=== PATIENT | female | born 1980 | race Caucasian/White ===

== ENCOUNTER → 2025-03-23 | Outpatient (CLI) | payer BC ==
--- NOTE | 2025-03-23 11:55 | MM ---
Reason for Exam: Screening (asymptomatic). Last screening mammogram was performed 11 month(s) ago. Patient History: Menarche at age 15. First Full-Term at age 28. Premenopausal. Patient has history of breast feeding. Risk Values: Lesley 5 year model risk: 0.7%. NCI Lifetime model risk: 10.9%. Prior Study Comparison: 06/14/2017 Bilateral Diagnostic Mammogram, [facility], [place]. 10/20/2019 Right Diagnostic Mammogram, [email or web address] [place]. 03/09/2023 Bilateral Diagnostic Mammogram, [facility], [place]. 03/13/2024 Bilateral Screening Mammogram, [facility], [place]. 04/15/2024 Left Diagnostic Mammogram, [place]. Tissue Density: The breasts are heterogeneously dense, which may obscure small masses. Findings: Analyzed By CAD. Right breast: There is no suspicious group of microcalcifications or new suspicious mass. Left breast: There is no suspicious group of microcalcifications or new suspicious mass. Overall Assessment: Negative, BI-RAD 1 Management: Screening Mammogram of both breasts in [address] [facility] will attempt to contact patient to return for supplemental views and ultrasound if indicated. Patient should continue monthly self-breast exams. A clinical breast exam by your physician is recommended on an annual basis. This exam should not preclude additional follow-up of suspicious palpable abnormalities. Note on Lesley scores and lifetime risk: 1. A Lesley score greater than 3% is considered moderate risk. If this is the case, consider specialist referral to assess eligibility for a risk reducing agent. 2. If overall lifetime risk for the development of breast cancer is 20% or higher, the patient may qualify for future screening with alternating mammogram and breast MRI. [facility], , 03/23/2025 11:52 AM. Electronically signed and approved by: Marcel Christie DO
== END | disposition home or self-care (01) ==
LOC: RADMAMWWP 10:36
PROVIDERS: ATTEND Obstetrics & Gynecology
DX: Z12.31 Encounter for screening mammogram for malignant neoplasm of breast (principal); R92.333 Mammographic heterogeneous density, bilateral breasts
CPT/HCPCS: 77063; 77067